=== PATIENT | female | born 1935 | race Caucasian/White ===

== ENCOUNTER 2016-11-01 22:55 | Inpatient (IN) | payer BC ==
[~2016-11-01] VITALS: Ht 147.3 cm; Wt 55.6 kg
[2016-11-01 23:46] LABS: BASOPHIL % 0.6 % (0-2); PLATELET COUNT 274 x10^3mcL (130-400); RED CELL DISTRIBUTION WIDTH 14.5 % (11.5-14.5)
[2016-11-02] VITALS (9 sets, daily range): BP systolic 108–166; BP diastolic 41–66; Ht 147.3 cm; Wt 55.6 kg
[2016-11-02 00:01] LABS: ALKALINE PHOSPHATASE 403 U/L (46-116); ALT/SGPT 25 U/L (14-59); AST/SGOT 42 U/L (15-37); BILIRUBIN TOTAL 2.49 mg/dL (0.20-1.00); CALCIUM 9.1 mg/dL (8.5-10.1); CARBON DIOXIDE 35.9 mmol/L (21-32); CHLORIDE SERUM 97 mmol/L (98-107); CREATININE SERUM 1.7 mg/dL (0.6-1.0); GLUCOSE SERUM 145 mg/dL (74-106); POTASSIUM SERUM 3.2 mmol/L (3.5-5.1); SODIUM SERUM 136 mmol/L (136-145)
[2016-11-02 00:02] LABS: ALBUMIN 2.7 g/dL (3.4-5.0)
[2016-11-02] MEDS ORDERED: K10 PO (01:21)
[2016-11-02] MEDS ORDERED: XARELTO10 M1 PO (01:21)
[2016-11-02] MEDS ORDERED: FUROSEMIDE20 MG PO (01:21)
[2016-11-02] MEDS ORDERED: METOPROLOL SUCC50 M2 PO (01:22)
[2016-11-02] MEDS ORDERED: DIGOXIN0.125 M1 PO (01:22)
[2016-11-02 02:01] LABS: MAGNESIUM 2.6 mg/dL (1.8-2.4)
[2016-11-02 02:12] LABS: FREE T4 2.27 ng/dL (0.76-1.46)
[2016-11-02 02:23] LABS: CHOLESTEROL/HDL RATIO 5.6; FREE THYROXINE INDEX 6.6 ug/dL (1.4-4.5); T4(THYROXINE) 18.2 ug/dL (4.7-13.3)
[2016-11-02 02:38] LABS: T3 TOTAL 0.74 ng/mL
[2016-11-02 06:35] LABS: BASOPHIL % 0.4 % (0-2); PLATELET COUNT 295 x10^3mcL (130-400); RED CELL DISTRIBUTION WIDTH 14.5 % (11.5-14.5)
[2016-11-02 07:52] LABS: CALCIUM 9.1 mg/dL (8.5-10.1); CARBON DIOXIDE 30.2 mmol/L (21-32); CHLORIDE SERUM 98 mmol/L (98-107); CREATININE SERUM 1.7 mg/dL (0.6-1.0); GLUCOSE SERUM 101 mg/dL (74-106); MAGNESIUM 2.5 mg/dL (1.8-2.4); POTASSIUM SERUM 4.1 mmol/L (3.5-5.1); SODIUM SERUM 137 mmol/L (136-145)
[2016-11-03] VITALS (7 sets, daily range): BP systolic 103–126; BP diastolic 41–60
[2016-11-03 00:25] LABS: microscopic required? YES; urine erythrocyte NEGATIVE (NEGATIVE)
[2016-11-03 05:53] LABS: BASOPHIL % 0.4 % (0-2); PLATELET COUNT 261 x10^3mcL (130-400)
[2016-11-03 06:13] LABS: CALCIUM 8.7 mg/dL (8.5-10.1); CARBON DIOXIDE 34.7 mmol/L (21-32); CHLORIDE SERUM 103 mmol/L (98-107); CREATININE SERUM 1.5 mg/dL (0.6-1.0); GLUCOSE SERUM 117 mg/dL (74-106); MAGNESIUM 2.4 mg/dL (1.8-2.4); SODIUM SERUM 144 mmol/L (136-145)
[2016-11-03 06:33] LABS: POTASSIUM SERUM 2.9 mmol/L (3.5-5.1)
[2016-11-04 05:26] VITALS: BP 120/59
[2016-11-04 07:07] LABS: BASOPHIL % 0.4 % (0-2); PLATELET COUNT 252 x10^3mcL (130-400)
[2016-11-04 09:44] LABS: CALCIUM 8.7 mg/dL (8.5-10.1); CHLORIDE SERUM 108 mmol/L (98-107); CREATININE SERUM 1.2 mg/dL (0.6-1.0); GLUCOSE SERUM 109 mg/dL (74-106); MAGNESIUM 2.1 mg/dL (1.8-2.4); PHOSPHOROUS 2.9 mg/dL (2.5-4.9); POTASSIUM SERUM 3.3 mmol/L (3.5-5.1); SODIUM SERUM 149 mmol/L (136-145)
[2016-11-04 10:00] VITALS: BP 105/71
[2016-11-04 14:11] VITALS: BP 108/56
[2016-11-04] MEDS ORDERED: MECLIZINE HCL12.5 MG PO (16:57)
[2016-11-04] MEDS ORDERED: LAC PO (16:57)
[2016-11-04] MEDS ORDERED: CIPRO250 MG PO (16:57)
[2016-11-04 17:18] VITALS: BP 108/56
== END 2016-11-04 17:45 | disposition home or self-care (01) | DRG 91 ==
LOC: ED 22:55 → DU 11-02 01:15
PROVIDERS: Emergency Medicine; ADMIT Family Medicine
DX: G92 Toxic encephalopathy (principal); N17.0 Acute kidney failure with tubular necrosis; E43 Unspecified severe protein-calorie malnutrition; N39.0 Urinary tract infection, site not specified; T46.0X5A Adverse effect of cardiac-stimulant glycosides and drugs of similar action, initial encounter; K74.60 Unspecified cirrhosis of liver; I48.2 Chronic atrial fibrillation; I10 Essential (primary) hypertension; E87.6 Hypokalemia; E83.41 Hypermagnesemia; E87.8 Other disorders of electrolyte and fluid balance, not elsewhere classified; Z79.01 Long term (current) use of anticoagulants; Y92.009 Unspecified place in unspecified non-institutional (private) residence as the place of occurrence of the external cause
CPT/HCPCS: 83880; 84439; 97110-GP; 97116-GP; 97530-GP; J0696; J1162; J1940; J2550; J2765; J3480; J7030; J7620; J7633; Q0092

== ENCOUNTER 2016-12-24 15:02 | Emergency (ER) | payer BC ==
[~2016-12-24 15:02] MED LIST: CIPRO250 MG PO; DIGOXIN0.125 M1 PO; FUROSEMIDE20 MG PO; K10 PO; LAC PO; MECLIZINE HCL12.5 MG PO; METOPROLOL SUCC50 M2 PO; XARELTO10 M1 PO
[2016-12-24 17:30] LABS: BASOPHIL % 0.3 % (0-2); PLATELET COUNT 264 x10^3mcL (130-400)
[2016-12-24 17:31] LABS: RED CELL DISTRIBUTION WIDTH 15.4 % (11.5-14.5)
[2016-12-24 17:46] LABS: CALCIUM 9.2 mg/dL (8.5-10.1); CARBON DIOXIDE 28.9 mmol/L (21-32); CHLORIDE SERUM 104 mmol/L (98-107); CREATININE SERUM 0.9 mg/dL (0.6-1.0); GLUCOSE SERUM 115 mg/dL (74-106); SODIUM SERUM 139 mmol/L (136-145)
[2016-12-24 17:51] LABS: ALKALINE PHOSPHATASE 510 U/L (46-116); ALT/SGPT 32 U/L (14-59); AST/SGOT 53 U/L (15-37); BILIRUBIN TOTAL 1.59 mg/dL (0.20-1.00); LIPASE 195 IU/L (73-393); TOTAL PROTEIN, SERUM 9.1 g/dL (6.4-8.2)
[2016-12-24 22:09] VITALS: BP 136/107
== END 2016-12-24 22:00 | disposition home or self-care (01) ==
LOC: ED 15:02
PROVIDERS: Emergency Medicine
DX: R10.11 Right upper quadrant pain (principal); I10 Essential (primary) hypertension; I50.9 Heart failure, unspecified
CPT/HCPCS: J1885